=== PATIENT | female | born 1935 | race Caucasian/White ===

== ENCOUNTER → 2016-09-27 | Outpatient (REF) | payer MEDICARE ==
[~2016-09-27] MED LIST: *HOLTER -; /PANT40TA; AMBI10TA; AMBI5TAB PO; AMBIEN10 PO; AMO500 PO; ASPEC325 PO; ATARAX25 PO; BIAXIN500 PO; BONIVA PO; CELEBRE100 PO; CIPR500T3 PO; CIPRO250 PO; CIPRO500 PO; CLAR10CA3 PO; DARVOCET-N PO; DIFLUC150 PO; DRISDOL50 PO; EPIPENAD INJECTION; FLAG250T PO; FLEXERIL; FLEXERIL10 PO; IMITREX SC; IMITREX50 PO; LIDODERM; LIDODERM TOPICAL; LORTAB5 PO; MOME50SP; NASONEX NASAL; NIFEREX PO; OMNICEF300 PO; PHENERGA25 PO; PRED10TA2; PREDNISO10 PO; PREDNISON5 PO; PREVACID30 PO; SKELAXIN8 PO; TYLE325T5 PO; VALTREX100 PO; VICO5TAB; VICODIN PO; VITAMIN D50000 UNT; ZOFR4TAB3 PO; ZOLOFT50 PO; [UNRECOGNIZED DRUG - OTHER] NASAL
[2016-09-27 16:55] LABS: TRIPLE PHOSPHATE CRYSTALS SMALL
== END ==
LOC: M SFHCPLAZ 15:47
PROVIDERS: ATTEND Family Medicine
DX: R30.0 Dysuria (principal)

== ENCOUNTER → 2016-10-07 | Outpatient (CLI) | payer MEDICARE ==
--- NOTE | 2016-10-07 15:26 | REP ---
Right ankle series: Four views. History: Contusion. Findings: Four views of the right ankle demonstrate anterolateral soft-tissue swelling and some diffuse osteopenia. There is Achilles and plantar calcaneal spurring. No fracture or subluxation is seen. Ankle mortise is intact. Impression: No fracture noted. Signed by Gilberto Grubbs MD 10/07/2016 03:33 P
--- NOTE | 2016-10-07 15:27 | REP ---
Right foot series: Four views. History: Contusion. Findings: Four views of the right foot demonstrate Achilles and plantar calcaneal spurring and diffuse osteoporosis. No fracture or subluxation is seen. Impression: No fracture noted. Signed by Gilberto Grubbs MD 10/07/2016 03:33 P
== END ==
LOC: M WUC 14:20
PROVIDERS: ATTEND Physician Assistant
DX: S90.01XA Contusion of right ankle, initial encounter (principal); X58.XXXA Exposure to other specified factors, initial encounter; Y92.89 Other specified places as the place of occurrence of the external cause; Y93.89 Activity, other specified; Y99.8 Other external cause status

== ENCOUNTER → 2016-11-25 | Outpatient (REF) | payer MEDICARE ==
[2016-11-25 13:35] LABS: MEAN CORPUSCULAR HGB CONC 35.2 g/dl (32.0-36.5); MEAN CORPUSCULAR VOLUME 85.4 fl (80.0-96.0)
[2016-11-25 13:36] LABS: BASO % 0.3 % (0.0-1.0); EOS % 0.5 % (0.0-3.0); LYMPH # 0.3 K/mm3 (1.5-4.5); LYMPH % 10.6 % (24.0-44.0); MONO # 0.1 K/mm3 (0.0-0.8); NEUTROPHILS # 2.6 K/mm3 (1.8-7.7); NEUTROPHILS % 85.5 % (36.0-66.0); PLATELET COUNT, AUTOMATED 138 k/mm3 (150-450)
[2016-11-25 13:37] LABS: RETIC HEMOGLOBIN CONTENT CHr 30.5 PG (24-36)
[2016-11-25 13:38] LABS: RETICULOCYTE ABSOLUTE ADVIA212 86 x10(9)/L (17-77)
[2016-11-25 13:39] LABS: ALBUMIN 3.6 GM/DL (3.2-5.2); ALBUMIN/GLOBULIN RATIO 0.88 (1.00-1.93); ALKALINE PHOSPHATASE 100 U/L (45-117); ALT/SGPT 15 U/L (12-78); ANION GAP 5 MEQ/L (8-16); AST/SGOT 23 U/L (15-37); BILIRUBIN,TOTAL 0.9 MG/DL (0.2-1.0); BLOOD UREA NITROGEN 17 MG/DL (7-18); CALCIUM LEVEL 8.7 MG/DL (8.8-10.2); CARBON DIOXIDE LEVEL 32 MEQ/L (21-32); CHLORIDE LEVEL 103 MEQ/L (98-107); CREATININE FOR GFR 0.66 MG/DL (0.55-1.02); FERRITIN 184 NG/ML (8-252); GLOMERULAR FILTRATION RATE > 60.0 (>32); GLUCOSE, FASTING 96 MG/DL (83-110); POTASSIUM SERUM 4.1 MEQ/L (3.5-5.1); RETICULOCYTE % ADVIA2120 3.05 % (0.5-1.5); SODIUM LEVEL 140 MEQ/L (136-145); TOTAL IRON BINDING CAPACITY 255 UG/DL (250-450); TOTAL PROTEIN 7.7 GM/DL (6.4-8.2)
== END ==
LOC: M SFHCPLAZ 12:01
PROVIDERS: ATTEND Family Medicine
DX: D61.818 Other pancytopenia (principal); E55.9 Vitamin D deficiency, unspecified; I50.30 Unspecified diastolic (congestive) heart failure
CPT/HCPCS: 36415; 80053; 82306; 82728; 83550; 83970; 85025; 85046; 86140; G0463

== ENCOUNTER → 2017-03-22 | Outpatient (REF) | payer MEDICARE ==
[~2017-03-22] MED LIST changes: +COMBAER6 INH
== END ==
LOC: M LAB REF 09:37
PROVIDERS: ATTEND Physician Assistant
DX: N39.0 Urinary tract infection, site not specified (principal)

== ENCOUNTER → 2017-03-31 | Outpatient (REF) | payer MEDICARE ==
[2017-03-31 12:06] LABS: BASO % 0.8 % (0.0-1.0); EOS % 0.3 % (0.0-3.0); LARGE UNSTAINED CELL # 0.1 K/mm3 (0.0-0.4); LARGE UNSTAINED CELL % 2.7 % (0.0-4.0); LYMPH # 0.8 K/mm3 (1.5-4.5); LYMPH % 36.1 % (24.0-44.0); MEAN CORPUSCULAR HEMOGLOBIN 30.6 pg (27.0-33.0); MEAN CORPUSCULAR HGB CONC 30.4 g/dl (32.0-36.5); MEAN CORPUSCULAR VOLUME 100.5 fl (80.0-96.0); MONO # 0.3 K/mm3 (0.0-0.8); MONO % 13.4 % (0.0-5.0); NEUTROPHILS % 46.7 % (36.0-66.0); PLATELET COUNT, AUTOMATED 128 k/mm3 (150-450); RED CELL DISTRIBUTION WIDTH 14.1 % (11.5-14.5); WHITE BLOOD COUNT 2.2 K/mm3 (4.0-10.0)
[2017-03-31 12:24] LABS: ALBUMIN 3.2 GM/DL (3.2-5.2); ALBUMIN/GLOBULIN RATIO 0.74 (1.00-1.93); ALKALINE PHOSPHATASE 93 U/L (45-117); ALT/SGPT 13 U/L (12-78); ANION GAP 5 MEQ/L (8-16); AST/SGOT 19 U/L (15-37); BILIRUBIN,TOTAL 0.8 MG/DL (0.2-1.0); BLOOD UREA NITROGEN 17 MG/DL (7-18); CALCIUM LEVEL 8.7 MG/DL (8.8-10.2); CARBON DIOXIDE LEVEL 33 MEQ/L (21-32); CHLORIDE LEVEL 104 MEQ/L (98-107); CREATININE FOR GFR 0.59 MG/DL (0.55-1.02); FREE T4 0.93 NG/DL (0.76-1.46); GLOMERULAR FILTRATION RATE > 60.0 (>32); GLUCOSE, FASTING 98 MG/DL (83-110); POTASSIUM SERUM 4.2 MEQ/L (3.5-5.1); SODIUM LEVEL 142 MEQ/L (136-145); TOTAL PROTEIN 7.5 GM/DL (6.4-8.2)
== END ==
LOC: M LABDRAW1 10:18
PROVIDERS: ATTEND Family Medicine
DX: D64.9 Anemia, unspecified (principal); E55.9 Vitamin D deficiency, unspecified; R63.4 Abnormal weight loss

== ENCOUNTER 2017-04-03 10:47 | Outpatient (CLI) | payer MEDICARE ==
[~2017-04-03] VITALS: Ht 154.9 cm; Wt 40.9 kg
[2017-04-03] VITALS (9 sets, daily range): BP systolic 93–145; BP diastolic 50–68
[~2017-04-03 10:47] MED LIST changes: -COMBAER6 INH
[2017-04-03] MEDS ORDERED: COMBAER6 INH (11:12)
== END 2017-04-03 19:00 ==
LOC: M OPCLIPED 10:47 → M PED 10:50 → M OPCLIPED 19:00
PROVIDERS: ATTEND Family Medicine
DX: D50.9 Iron deficiency anemia, unspecified (principal); Z88.8 Allergy status to other drugs, medicaments and biological substances; Z88.1 Allergy status to other antibiotic agents; Z91.030 Bee allergy status; Z79.899 Other long term (current) drug therapy
CPT/HCPCS: 36430; 86850; 86900; 86901; 86920; P9016

== ENCOUNTER → 2017-04-05 | Outpatient (CLI) | payer MEDICARE ==
[~2017-04-05] MED LIST changes: +COMBAER6 INH; +GASTROGRAFIN SOLUTION 30ML (Q9963) As Ordered ONE; +ISOVUE-370 76% 100ML VIAL (Q9967) As Ordered ONE
--- NOTE | 2017-04-05 12:40 | REP ---
CT NECK WITH CONTRAST: HISTORY: Weight loss. CONTRAST: Isovue 370, 75 mL. The naso-, obed-, and hypopharynx, larynx and subglottic trachea are normal in appearance. Increased density is present in the left vallecula. This most likely represents secretions. The salivary glands are normal in size and density. A 5 mm hypodensity is present in the right thyroid lobe. This most likely represents a cyst. The left thyroid lobe is normal in appearance. Small lymph nodes less than 1 cm in size are present in the internal jugular chains, posterior triangles, submandibular and submental areas. Degenerative change is present in the cervical spine. Scaring is present in the lung apices. The visualized sinuses are clear. IMPRESSION: There is no neck mass or adenopathy. Signed by Yordan Kohli MD 04/05/2017 01:25 P
--- NOTE | 2017-04-05 13:32 | REP ---
CT CHEST WITH IV CONTRAST: TECHNIQUE: Axial contrast enhanced images from the thoracic inlet to the upper abdomen using 100 mL Isovue 370 intravenous contrast material with multiplanar reformations. Advanced interstitial fibrotic changes are again diffusely bilaterally with honeycombing primarily in a subpleural location and more so inferiorly. Confluent parenchymal opacity in the right apex has mildly increased as has mildly confluent opacity in the right lower lobe laterally. Otherwise, the findings are stable. Multiple enlarged mediastinal and hilar lymph nodes are unchanged since the prior exam of 11/23/2015. There is mild cardiomegaly. There is no pleural or pericardial effusion. Mild atherosclerotic calcifications are seen of the thoracic aorta without aneurysm. There are mild degenerative changes of the spine. IMPRESSION: No change in mediastinal and hilar adenopathy compared to the prior study of 11/23/2015. Advanced pulmonary fibrosis for the most part appears stable but there is increased confluent consolidative opacity in the right apex and lateral right lower lobe. Signed by Wallace Erwin MD 04/05/2017 05:37 P
--- NOTE | 2017-04-05 13:50 | REP ---
CT ABDOMEN AND PELVIS WITH AND WITHOUT CONTRAST: TECHNIQUE: Axial noncontrast images through the abdomen followed by contrast-enhanced images through the abdomen and pelvis using 100 mL Isovue 370 intravenous contrast material, with coronal and sagittal reformations. The liver, spleen, and left adrenal are unremarkable. The right adrenal demonstrates a stable nodule measuring 1.3 cm in diameter. The pancreas is unremarkable in appearance. There are bilateral renal cysts again seen essentially unchanged. There is no hydronephrosis. No renal stones are seen. There are moderate atherosclerotic calcifications of the abdominal aorta without aneurysm. There is no adenopathy, free air or free fluid. No bowel wall thickening is seen. No pelvic mass is seen. The patient has had a hysterectomy. There are degenerative changes of the spine. Small gallstones are seen in the gallbladder. IMPRESSION: Stable right adrenal nodule and bilateral renal cysts. No new mass or adenopathy. Gallstones. Signed by Wallace Erwin MD 04/05/2017 05:37 P
== END ==
LOC: M RAD 09:31
PROVIDERS: ATTEND Family Medicine
DX: R63.4 Abnormal weight loss (principal); N28.1 Cyst of kidney, acquired; E27.9 Disorder of adrenal gland, unspecified; J84.112 Idiopathic pulmonary fibrosis
CPT/HCPCS: 70491; 71260; 74178; Q9963; Q9967

== ENCOUNTER → 2017-05-05 | Outpatient (REF) | payer MEDICARE ==
[~2017-05-05] MED LIST changes: -GASTROGRAFIN SOLUTION 30ML (Q9963) As Ordered ONE; -ISOVUE-370 76% 100ML VIAL (Q9967) As Ordered ONE
[2017-05-05 16:30] LABS: BASO % 0.4 % (0.0-1.0); EOS % 0.5 % (0.0-3.0); LARGE UNSTAINED CELL # 0.1 K/mm3 (0.0-0.4); LYMPH # 0.8 K/mm3 (1.5-4.5); LYMPH % 29.3 % (24.0-44.0); MEAN CORPUSCULAR HEMOGLOBIN 30.5 pg (27.0-33.0); MEAN CORPUSCULAR VOLUME 98.6 fl (80.0-96.0); MONO # 0.2 K/mm3 (0.0-0.8); MONO % 9.8 % (0.0-5.0); NEUTROPHILS # 1.3 K/mm3 (1.8-7.7); PLATELET COUNT, AUTOMATED 109 k/mm3 (150-450); RED CELL DISTRIBUTION WIDTH 15.2 % (11.5-14.5); RETIC HEMOGLOBIN CONTENT CHr 32.3 PG (24-36); RETICULOCYTE ABSOLUTE ADVIA212 125 x10(9)/L (17-77); WHITE BLOOD COUNT 2.3 K/mm3 (4.0-10.0)
[2017-05-05 16:48] LABS: TOTAL PROTEIN 7.8 GM/DL (6.4-8.2)
[2017-05-05 16:54] LABS: VITAMIN B12 LEVEL 948 PG/ML (247-911)
[2017-05-08 14:56] LABS: ALBUMIN 3.77 GM/DL (3.29-5.55); ALBUMIN % 48.3 % (55.8-66.1); GAMMA GLOBULIN % 23.5 % (11.1-18.8)
[2017-05-09 12:04] LABS: PRETREATED FOLATE FOR RBCFOL 6.9 NG/ML
== END ==
LOC: M SFHCPLAZ 14:52
PROVIDERS: ATTEND Family Medicine
DX: D64.9 Anemia, unspecified (principal)

== ENCOUNTER 2018-03-31 15:26 | Inpatient (IN) | payer MEDICARE ==
[2018-03-31] MEDS: ONDANSETRON 4MG/2ML VIAL (J2405) IV (16:19)
[2018-03-31] MEDS: MORPHINE 2 MG/ML 1ML SYRINGE (J2270) IV ×2 (16:20→18:19)
[2018-03-31 16:23] LABS: IMMATURE GRANULOCYTE % 1.1 % (0-3.0); LYMPH # 0.4 10^3/uL (1.5-4.5); LYMPH % 14.1 % (24.0-44.0); MEAN CORPUSCULAR HEMOGLOBIN 30.5 pg (27.0-33.0); MEAN CORPUSCULAR HGB CONC 27.9 g/dl (32.0-36.5); MEAN CORPUSCULAR VOLUME 109.1 fl (80.0-96.0); MONO # 0.2 10^3/uL (0.0-0.8); MONO % 6.5 % (0.0-5.0); NEUTROPHILS # 2.1 10^3/uL (1.8-7.7); NEUTROPHILS % 78.3 % (36.0-66.0); RED CELL DISTRIBUTION WIDTH 14.6 % (11.5-14.5); WHITE BLOOD COUNT 2.6 10^3/uL (4.0-10.0)
[2018-03-31 16:26] LABS: HEMOGLOBIN 6.7 g/dl (12.0-15.5); PLATELET COUNT, AUTOMATED 87 10^3/uL (150-450)
[2018-03-31 16:33] LABS: BEDSIDE GLUCOSE 92 MG/DL (83-110)
[2018-03-31 16:35] LABS: IMMATURE PLATELET FRACTION % 2.2 % (0.0-9.6)
[2018-03-31 16:39] LABS: LACTIC ACID SEPSIS PROTOCOL 0.8 MMOL/L (0.4-2.0)
[2018-03-31 16:42] LABS: INR 1.07
[2018-03-31 16:43] LABS: PARTIAL THROMBOPLASTIN TIME 34.1 SECONDS (25.4-37.6)
[2018-03-31 16:44] LABS: ALBUMIN/GLOBULIN RATIO 0.61 (1.00-1.93); ALKALINE PHOSPHATASE 89 U/L (45-117); ALT/SGPT 14 U/L (12-78); AMYLASE 176 U/L (25-115); ANION GAP 2 MEQ/L (8-16); AST/SGOT 27 U/L (7-37); BILIRUBIN,DIRECT 0.2 MG/DL (0.0-0.2); BILIRUBIN,TOTAL 0.8 MG/DL (0.2-1.0); BLOOD UREA NITROGEN 24 MG/DL (7-18); CALCIUM LEVEL 8.6 MG/DL (8.8-10.2); CARBON DIOXIDE LEVEL 39 MEQ/L (21-32); CHLORIDE LEVEL 101 MEQ/L (98-107); CK-MB VALUE MASS < 1.0 NG/ML (<3.6); CPK CREATINE PHOSPHOKINASE 56 U/L (26-192); CREATININE FOR GFR 0.56 MG/DL (0.55-1.30); GLOMERULAR FILTRATION RATE > 60.0 (>32); GLUCOSE, FASTING 95 MG/DL (70-100); LIPASE 402 U/L (73-393); MB/CK RELATIVE INDEX 1.78 (< OR =4); POTASSIUM SERUM 4.3 MEQ/L (3.5-5.1); SODIUM LEVEL 142 MEQ/L (136-145); TOTAL PROTEIN 7.9 GM/DL (6.4-8.2); TROPONIN I < 0.02 NG/ML (< 0.10)
[2018-03-31] MEDS ORDERED: BISACODYL 10 MG SUPP PR (18:00)
[2018-03-31 18:18] LABS: IMMEDIATE SPIN CROSSMATCH 1 4
[2018-03-31] MEDS: IPRATROPIUM 0.5MG/ALBUTEROL 2.5MG INH SOL UD 3ML (DUONEB)(J7620) NEB (20:00)
[2018-03-31] MEDS: SENOKOT S TAB PO (22:28)
[2018-03-31] MEDS: NS 1,000 ML IV (23:09)
[2018-03-31] MEDS: MORPHINE 4 MG/ML 1ML VIAL/SYRINGE (J2270) IV (23:09)
[2018-04-01 00:20] LABS: HEMATOCRIT 29.5 % (36.0-47.0); MEAN CORPUSCULAR HEMOGLOBIN 30.4 pg (27.0-33.0); MEAN CORPUSCULAR HGB CONC 29.5 g/dl (32.0-36.5); MEAN CORPUSCULAR VOLUME 103.1 fl (80.0-96.0); RED BLOOD COUNT 2.86 10^6/uL (4.00-5.40); RED CELL DISTRIBUTION WIDTH 17.1 % (11.5-14.5); WHITE BLOOD COUNT 3.6 10^3/uL (4.0-10.0)
[2018-04-01 00:22] LABS: PLATELET COUNT, AUTOMATED 79 10^3/uL (150-450)
[2018-04-01 00:23] LABS: HEMOGLOBIN 8.7 g/dl (12.0-15.5)
[2018-04-01 06:48] LABS: BASO % 0.4 % (0.0-1.0); HEMATOCRIT 27.6 % (36.0-47.0); HEMOGLOBIN 8.3 g/dl (12.0-15.5); IMMATURE GRANULOCYTE % 0.4 % (0-3.0); LYMPH # 0.5 10^3/uL (1.5-4.5); LYMPH % 22.2 % (24.0-44.0); MEAN CORPUSCULAR HEMOGLOBIN 30.1 pg (27.0-33.0); MEAN CORPUSCULAR HGB CONC 30.1 g/dl (32.0-36.5); MONO # 0.3 10^3/uL (0.0-0.8); MONO % 13.8 % (0.0-5.0); NEUTROPHILS # 1.5 10^3/uL (1.8-7.7); NEUTROPHILS % 63.2 % (36.0-66.0); RED BLOOD COUNT 2.76 10^6/uL (4.00-5.40); RED CELL DISTRIBUTION WIDTH 17.4 % (11.5-14.5); WHITE BLOOD COUNT 2.4 10^3/uL (4.0-10.0)
[2018-04-01 06:49] LABS: PLATELET COUNT, AUTOMATED 64 10^3/uL (150-450)
[2018-04-01 06:58] LABS: ALBUMIN 2.7 GM/DL (3.2-5.2); ALBUMIN/GLOBULIN RATIO 0.59 (1.00-1.93); ALKALINE PHOSPHATASE 74 U/L (45-117); ALT/SGPT 13 U/L (12-78); ANION GAP 1 MEQ/L (8-16); AST/SGOT 24 U/L (7-37); BILIRUBIN,TOTAL 0.9 MG/DL (0.2-1.0); BLOOD UREA NITROGEN 21 MG/DL (7-18); CALCIUM LEVEL 8.5 MG/DL (8.8-10.2); CARBON DIOXIDE LEVEL 38 MEQ/L (21-32); CHLORIDE LEVEL 103 MEQ/L (98-107); CREATININE FOR GFR 0.48 MG/DL (0.55-1.30); GLOMERULAR FILTRATION RATE > 60.0 (>32); GLUCOSE, FASTING 78 MG/DL (70-100); POTASSIUM SERUM 4.3 MEQ/L (3.5-5.1); SODIUM LEVEL 142 MEQ/L (136-145); TOTAL PROTEIN 7.3 GM/DL (6.4-8.2)
[2018-04-01] MEDS: ACETAMINOPHEN TAB 650MG DOSE (2X325MG) PO (07:46)
[2018-04-01] MEDS: PANTOPRAZOLE 40MG TAB (PROTONIX) PO (07:47)
[2018-04-01] MEDS: SENOKOT S TAB PO ×2 (07:47→20:12)
[2018-04-01] MEDS: MORPHINE 4 MG/ML 1ML VIAL/SYRINGE (J2270) IV (07:47)
[2018-04-01] MEDS: NS 1,000 ML IV ×2 (07:48→19:55)
[2018-04-01] MEDS: IPRATROPIUM 0.5MG/ALBUTEROL 2.5MG INH SOL UD 3ML (DUONEB)(J7620) NEB ×4 (07:52→20:45)
[2018-04-01] MEDS: ceFAZolin 2 GM/D5W 50 ML IV BAG (J0690 PER 500MG) As Ordered (14:41)
[2018-04-01] MEDS ORDERED: LIDOCAINE 2% INJ 100 MG/5 ML SDV (FOR ANES.) As Ordered (14:56)
[2018-04-01] MEDS ORDERED: MIDAZOLAM INJ 2 MG/2 ML VIAL (J2250) As Ordered (14:56)
[2018-04-01] MEDS ORDERED: PHENYLEPHRINE INJ 10MG/ML VIAL (J2370) As Ordered (14:56)
[2018-04-01] MEDS ORDERED: ROCURONIUM BROMIDE 50 MG/5 ML VIAL As Ordered (14:56)
[2018-04-01] MEDS ORDERED: fentaNYL 100 MCG/2 ML INJECTION (J3010) As Ordered (14:56)
[2018-04-01] MEDS ORDERED: ONDANSETRON 4MG/2ML VIAL (J2405) As Ordered (14:56)
[2018-04-01] MEDS ORDERED: SUCCINYLCHOLINE 100 MG/5 ML SYRINGE (J0330) As Ordered (14:56)
[2018-04-01 15:21] LABS: TYPE AND SCREEN 1 1
[2018-04-01] MEDS: BUPIVACAINE HCL 0.5% 30 ML VIAL As Ordered (15:24)
[2018-04-01] MEDS ORDERED: ETOMIDATE INJ 20MG/10ML VIAL As Ordered (15:58)
[2018-04-01] MEDS ORDERED: fentaNYL 100 MCG/2 ML INJECTION (J3010) IV (16:30)
[2018-04-01] MEDS ORDERED: ONDANSETRON 4MG/2ML VIAL (J2405) IV (16:30)
[2018-04-01] MEDS ORDERED: ACETAMINOPHEN TAB 650MG DOSE (2X325MG) PO (16:45)
[2018-04-01] MEDS: LR 1,000 ML IV (19:05)
[2018-04-01 19:26] LABS: HEMATOCRIT 26.6 % (36.0-47.0); HEMOGLOBIN 8.2 g/dl (12.0-15.5); MEAN CORPUSCULAR HEMOGLOBIN 30.7 pg (27.0-33.0); MEAN CORPUSCULAR HGB CONC 30.8 g/dl (32.0-36.5); MEAN CORPUSCULAR VOLUME 99.6 fl (80.0-96.0); RED BLOOD COUNT 2.67 10^6/uL (4.00-5.40); RED CELL DISTRIBUTION WIDTH 17.7 % (11.5-14.5)
[2018-04-01 19:27] LABS: PLATELET COUNT, AUTOMATED 61 10^3/uL (150-450)
[2018-04-01 19:29] LABS: IMMATURE PLATELET FRACTION % 1.8 % (0.0-9.6)
[2018-04-01] MEDS: ACETAMINOPHEN 500 MG TAB PO (20:12)
[2018-04-01] MEDS: ceFAZolin SOD 1 GM in D5W MINI-BAG PLUS 50 ML IV (20:12)
[2018-04-01] MEDS: NS 500 ML IV (22:30)
[2018-04-02] MEDS: ceFAZolin SOD 1 GM in D5W MINI-BAG PLUS 50 ML IV (03:24)
[2018-04-02] MEDS: ACETAMINOPHEN 500 MG TAB PO ×3 (03:25→21:16)
[2018-04-02] MEDS: NS 1,000 ML IV (03:32)
[2018-04-02 03:34] LABS: HEMATOCRIT 27.3 % (36.0-47.0); HEMOGLOBIN 8.7 g/dl (12.0-15.5); MEAN CORPUSCULAR HEMOGLOBIN 30.6 pg (27.0-33.0); MEAN CORPUSCULAR HGB CONC 31.9 g/dl (32.0-36.5); MEAN CORPUSCULAR VOLUME 96.1 fl (80.0-96.0); RED BLOOD COUNT 2.84 10^6/uL (4.00-5.40); RED CELL DISTRIBUTION WIDTH 17.4 % (11.5-14.5); WHITE BLOOD COUNT 3.4 10^3/uL (4.0-10.0)
[2018-04-02 03:41] LABS: PLATELET COUNT, AUTOMATED 69 10^3/uL (150-450)
[2018-04-02 03:58] LABS: ANION GAP 3 MEQ/L (8-16); BLOOD UREA NITROGEN 17 MG/DL (7-18); CALCIUM LEVEL 7.4 MG/DL (8.8-10.2); CARBON DIOXIDE LEVEL 34 MEQ/L (21-32); CHLORIDE LEVEL 106 MEQ/L (98-107); CREATININE FOR GFR 0.44 MG/DL (0.55-1.30); GLOMERULAR FILTRATION RATE > 60.0 (>32); GLUCOSE, FASTING 83 MG/DL (70-100); MAGNESIUM LEVEL 1.5 MG/DL (1.8-2.4); POTASSIUM SERUM 3.9 MEQ/L (3.5-5.1); SODIUM LEVEL 143 MEQ/L (136-145); TOTAL PROTEIN 5.7 GM/DL (6.4-8.2)
[2018-04-02 06:34] LABS: HEMATOCRIT 25.6 % (36.0-47.0); HEMOGLOBIN 8.1 g/dl (12.0-15.5); MEAN CORPUSCULAR HEMOGLOBIN 30.5 pg (27.0-33.0); MEAN CORPUSCULAR HGB CONC 31.6 g/dl (32.0-36.5); MEAN CORPUSCULAR VOLUME 96.2 fl (80.0-96.0); RED BLOOD COUNT 2.66 10^6/uL (4.00-5.40); RED CELL DISTRIBUTION WIDTH 17.6 % (11.5-14.5); WHITE BLOOD COUNT 2.9 10^3/uL (4.0-10.0)
[2018-04-02 06:40] LABS: PLATELET COUNT, AUTOMATED 68 10^3/uL (150-450)
[2018-04-02] MEDS: IPRATROPIUM 0.5MG/ALBUTEROL 2.5MG INH SOL UD 3ML (DUONEB)(J7620) NEB ×4 (07:06→20:00)
[2018-04-02] MEDS: PANTOPRAZOLE 40MG TAB (PROTONIX) PO (08:20)
[2018-04-02] MEDS: SENOKOT S TAB PO ×2 (08:20→21:00)
[2018-04-02] MEDS: MIRALAX *UNIT DOSE* 17GM PACKET PO (08:22)
[2018-04-03 11:34] LABS: ALBUMIN 2.75 GM/DL (3.29-5.55); ALBUMIN % 48.3 % (55.8-66.1); ALPHA-1-GLOBULIN % 5.6 % (2.9-4.9); ALPHA-1-GLOBULINS 0.32 GM/DL (0.17-0.41); ALPHA-2-GLOBULINS 0.54 GM/DL (0.42-0.99); ALPHA-2-GLOBULINS % 9.5 % (7.1-11.8); BETA-1-GLOBULINS 0.32 GM/DL (0.28-0.60); BETA-1-GLOBULINS % 5.7 % (4.7-7.2); BETA-2-GLOBULINS 0.48 GM/DL (0.19-0.55); BETA-2-GLOBULINS % 8.5 % (3.2-6.5); GAMMA GLOBULIN % 22.4 % (11.1-18.8); GAMMA GLOBULINS 1.28 GM/DL (0.65-1.58)
[2018-04-04 00:08] LABS: FREE KAPPA LIGHT CHAINS SERUM 70.4 mg/L (3.3-19.4); FREE LAMBDA LIGHT CHAINS SERUM 54.6 mg/L (5.7-26.3); KAPPA/LAMBDA RATIO SERUM 1.29 (0.26-1.65)
== END 2018-04-02 22:40 | DRG 481 ==
LOC: M PM&R 04-02 22:42 → M MS5PR 04-02 22:42 → M PM&R 04-02 23:24 → M ED 15:26 → M ED INP 17:52 → M MS5PR 04-02 23:24
PROC: 0QS706Z Reposition Left Upper Femur with Intramedullary Internal Fixation Device, Open Approach (ICD-10-PCS; principal; 2018-04-01 08:00)
PROC: 30233N1 Transfusion of Nonautologous Red Blood Cells into Peripheral Vein, Percutaneous Approach (ICD-10-PCS; 2018-04-01 14:27)
PROC: 30233R1 Transfusion of Nonautologous Platelets into Peripheral Vein, Percutaneous Approach (ICD-10-PCS; 2018-04-01 14:27)
DX: S72.145A Nondisplaced intertrochanteric fracture of left femur, initial encounter for closed fracture (principal); D61.818 Other pancytopenia; E46 Unspecified protein-calorie malnutrition; Z68.1 Body mass index [BMI] 19.9 or less, adult; D46.9 Myelodysplastic syndrome, unspecified; J84.10 Pulmonary fibrosis, unspecified; I70.0 Atherosclerosis of aorta; D50.9 Iron deficiency anemia, unspecified; K59.09 Other constipation; G43.909 Migraine, unspecified, not intractable, without status migrainosus; Z87.891 Personal history of nicotine dependence; Z90.710 Acquired absence of both cervix and uterus; Z90.722 Acquired absence of ovaries, bilateral; Z90.49 Acquired absence of other specified parts of digestive tract; W01.0XXA Fall on same level from slipping, tripping and stumbling without subsequent striking against object, initial encounter; Z98.49 Cataract extraction status, unspecified eye; Z99.81 Dependence on supplemental oxygen; Y92.009 Unspecified place in unspecified non-institutional (private) residence as the place of occurrence of the external cause; Y93.01 Activity, walking, marching and hiking; Z79.51 Long term (current) use of inhaled steroids; Z79.899 Other long term (current) drug therapy

== ENCOUNTER 2018-04-02 22:40 | Inpatient (IN) | payer MEDICARE ==
[2018-04-02] MEDS: SENOKOT S TAB PO (22:30)
[~2018-04-02 22:40] MED LIST changes: -*HOLTER -; -/PANT40TA; -AMBI10TA; -AMBI5TAB PO; -AMBIEN10 PO; -AMO500 PO; -ASPEC325 PO; -ATARAX25 PO; -BIAXIN500 PO; +BISACODYL 10 MG SUPP PR; +BISACODYL 5 MG TAB PO; -BONIVA PO; -CELEBRE100 PO; -CIPR500T3 PO; -CIPRO250 PO; -CIPRO500 PO; -CLAR10CA3 PO; -COMBAER6 INH; -DARVOCET-N PO; -DIFLUC150 PO; -DRISDOL50 PO; -EPIPENAD INJECTION; -FLAG250T PO; +FLEET ENEMA PR; -FLEXERIL; -FLEXERIL10 PO; -IMITREX SC; -IMITREX50 PO; +IPRATROPIUM 0.5MG/ALBUTEROL 2.5MG INH SOL UD 3ML (DUONEB)(J7620) INH; -LIDODERM; -LIDODERM TOPICAL; -LORTAB5 PO; +MOM 30ML SUSPENSION UDC PO; -MOME50SP; -NASONEX NASAL; -NIFEREX PO; -OMNICEF300 PO; +ONDANSETRON 4 MG TAB (S0181) PO; +PANTOPRAZOLE 20 MG TAB PO; -PHENERGA25 PO; -PRED10TA2; -PREDNISO10 PO; -PREDNISON5 PO; -PREVACID30 PO; +SIMETHICONE 80 MG CHEW TAB PO; -SKELAXIN8 PO; -TYLE325T5 PO; -VALTREX100 PO; -VICO5TAB; -VICODIN PO; -VITAMIN D50000 UNT; -ZOFR4TAB3 PO; -ZOLOFT50 PO; -[UNRECOGNIZED DRUG - OTHER] NASAL
[2018-04-03] MEDS: IBUPROFEN 400 MG TAB PO (05:50)
[2018-04-03 07:15] LABS: HEMATOCRIT 25.2 % (36.0-47.0); HEMOGLOBIN 7.8 g/dl (12.0-15.5); IMMATURE GRANULOCYTE % 0.4 % (0-3.0); LYMPH # 0.4 10^3/uL (1.5-4.5); LYMPH % 17.6 % (24.0-44.0); MEAN CORPUSCULAR HEMOGLOBIN 30.6 pg (27.0-33.0); MEAN CORPUSCULAR VOLUME 98.8 fl (80.0-96.0); MONO # 0.4 10^3/uL (0.0-0.8); MONO % 15.6 % (0.0-5.0); NEUTROPHILS # 1.7 10^3/uL (1.8-7.7); NEUTROPHILS % 66.4 % (36.0-66.0); RED BLOOD COUNT 2.55 10^6/uL (4.00-5.40); RED CELL DISTRIBUTION WIDTH 17.2 % (11.5-14.5); WHITE BLOOD COUNT 2.5 10^3/uL (4.0-10.0)
[2018-04-03 07:16] LABS: PLATELET COUNT, AUTOMATED 63 10^3/uL (150-450)
[2018-04-03 07:17] LABS: IMMATURE PLATELET FRACTION % 2.2 % (0.0-9.6)
[2018-04-03 07:26] LABS: ALBUMIN 2.2 GM/DL (3.2-5.2); ALBUMIN/GLOBULIN RATIO 0.59 (1.00-1.93); ALKALINE PHOSPHATASE 58 U/L (45-117); ALT/SGPT 10 U/L (12-78); ANION GAP 3 MEQ/L (8-16); AST/SGOT 24 U/L (7-37); BILIRUBIN,TOTAL 0.7 MG/DL (0.2-1.0); BLOOD UREA NITROGEN 13 MG/DL (7-18); CALCIUM LEVEL 8.2 MG/DL (8.8-10.2); CARBON DIOXIDE LEVEL 35 MEQ/L (21-32); CHLORIDE LEVEL 105 MEQ/L (98-107); CREATININE FOR GFR 0.52 MG/DL (0.55-1.30); GLOMERULAR FILTRATION RATE > 60.0 (>32); GLUCOSE, FASTING 80 MG/DL (70-100); POTASSIUM SERUM 3.8 MEQ/L (3.5-5.1); SODIUM LEVEL 143 MEQ/L (136-145); TOTAL PROTEIN 5.9 GM/DL (6.4-8.2)
[2018-04-03] MEDS: MIRALAX *UNIT DOSE* 17GM PACKET PO (08:50)
[2018-04-03] MEDS: PANTOPRAZOLE 40MG TAB (PROTONIX) PO (08:50)
[2018-04-03] MEDS: MULTIVITAMINS/MINERALS THERAP 1 TAB PO (08:50)
[2018-04-03] MEDS: ACETAMINOPHEN 500 MG TAB PO ×2 (11:26→17:14)
[2018-04-03 16:56] LABS: IMMEDIATE SPIN CROSSMATCH 1
[2018-04-03] MEDS: NS 250 ML IV (17:05)
[2018-04-03 19:15] LABS: IMMEDIATE SPIN CROSSMATCH 1 1
[2018-04-03] MEDS: SENOKOT S TAB PO (21:00)
[2018-04-03] MEDS: PANTOPRAZOLE 20 MG TAB PO (21:00)
[2018-04-04] MEDS: ACETAMINOPHEN 500 MG TAB PO ×3 (05:52→17:54)
[2018-04-04 07:34] LABS: EOS % 0.3 % (0.0-3.0); HEMATOCRIT 24.2 % (36.0-47.0); HEMOGLOBIN 7.8 g/dl (12.0-15.5); IMMATURE GRANULOCYTE % 0.7 % (0-3.0); LYMPH # 0.5 10^3/uL (1.5-4.5); LYMPH % 18.4 % (24.0-44.0); MEAN CORPUSCULAR HEMOGLOBIN 31.1 pg (27.0-33.0); MEAN CORPUSCULAR HGB CONC 32.2 g/dl (32.0-36.5); MEAN CORPUSCULAR VOLUME 96.4 fl (80.0-96.0); MONO # 0.3 10^3/uL (0.0-0.8); MONO % 10.5 % (0.0-5.0); NEUTROPHILS # 2.1 10^3/uL (1.8-7.7); NEUTROPHILS % 70.1 % (36.0-66.0); RED BLOOD COUNT 2.51 10^6/uL (4.00-5.40); WHITE BLOOD COUNT 2.9 10^3/uL (4.0-10.0)
[2018-04-04 07:35] LABS: PLATELET COUNT, AUTOMATED 73 10^3/uL (150-450)
[2018-04-04 07:36] LABS: IMMATURE PLATELET FRACTION % 2.1 % (0.0-9.6)
[2018-04-04 07:40] LABS: ANION GAP 3 MEQ/L (8-16); BLOOD UREA NITROGEN 14 MG/DL (7-18); CALCIUM LEVEL 8.3 MG/DL (8.8-10.2); CARBON DIOXIDE LEVEL 34 MEQ/L (21-32); CHLORIDE LEVEL 107 MEQ/L (98-107); CREATININE FOR GFR 0.49 MG/DL (0.55-1.30); GLOMERULAR FILTRATION RATE > 60.0 (>32); GLUCOSE, FASTING 84 MG/DL (70-100); POTASSIUM SERUM 3.5 MEQ/L (3.5-5.1); SODIUM LEVEL 144 MEQ/L (136-145)
[2018-04-04] MEDS: MIRALAX *UNIT DOSE* 17GM PACKET PO (09:57)
[2018-04-04] MEDS: PANTOPRAZOLE 40MG TAB (PROTONIX) PO (09:57)
[2018-04-04] MEDS: MULTIVITAMINS/MINERALS THERAP 1 TAB PO (09:57)
[2018-04-04 10:11] LABS: HEMATOCRIT 29.9 % (36.0-47.0); HEMOGLOBIN 9.3 g/dl (12.0-15.5)
[2018-04-04 10:40] LABS: FREE T4 0.99 NG/DL (0.76-1.46)
[2018-04-04 13:24] LABS: VITAMIN B12 LEVEL 843 PG/ML (247-911)
[2018-04-04] MEDS ORDERED: HALOPERIDOL 5 MG/ML VIAL (J1630) IM (15:45)
[2018-04-04] MEDS: PANTOPRAZOLE 20 MG TAB PO (20:54)
[2018-04-04] MEDS: SENOKOT S TAB PO (20:54)
[2018-04-04] MEDS: IBUPROFEN 400 MG TAB PO (20:55)
[2018-04-05] MEDS: ACETAMINOPHEN 500 MG TAB PO ×3 (06:30→16:38)
[2018-04-05] MEDS: MIRALAX *UNIT DOSE* 17GM PACKET PO (08:23)
[2018-04-05] MEDS: MULTIVITAMINS/MINERALS THERAP 1 TAB PO (08:23)
[2018-04-05] MEDS: PANTOPRAZOLE 40MG TAB (PROTONIX) PO (08:23)
[2018-04-05] MEDS ORDERED: EXCEDRIN MIGRAINE TABLET PO (12:15)
[2018-04-05 12:55] LABS: IMMUNOTYPING SERUM LAMBDA ABNORMAL (NORMAL)
[2018-04-05 18:38] LABS: URINE TOTAL PROTEIN 120.3 MG/DL (0-12)
[2018-04-05] MEDS: diphenhydrAMINE 25 MG CAP PO (20:06)
[2018-04-05] MEDS: PANTOPRAZOLE 20 MG TAB PO (20:06)
[2018-04-05] MEDS: IBUPROFEN 400 MG TAB PO (20:07)
[2018-04-05] MEDS: SENOKOT S TAB PO (20:53)
[2018-04-05] MEDS ORDERED: diphenhydrAMINE 25 MG CAP PO (21:00)
[2018-04-06] MEDS: ACETAMINOPHEN 500 MG TAB PO ×3 (05:18→18:04)
[2018-04-06] MEDS: MIRALAX *UNIT DOSE* 17GM PACKET PO (09:00)
[2018-04-06] MEDS: MULTIVITAMINS/MINERALS THERAP 1 TAB PO (09:38)
[2018-04-06] MEDS: PANTOPRAZOLE 40MG TAB (PROTONIX) PO (09:38)
[2018-04-06] MEDS: IBUPROFEN 400 MG TAB PO ×3 (09:38→22:23)
[2018-04-06 11:00] LABS: HEMOGLOBIN 8.5 g/dl (12.0-15.5); MEAN CORPUSCULAR HEMOGLOBIN 30.9 pg (27.0-33.0); MEAN CORPUSCULAR HGB CONC 30.4 g/dl (32.0-36.5); MEAN CORPUSCULAR VOLUME 101.8 fl (80.0-96.0); PLATELET COUNT, AUTOMATED 119 10^3/uL (150-450); RED BLOOD COUNT 2.75 10^6/uL (4.00-5.40); RED CELL DISTRIBUTION WIDTH 15.7 % (11.5-14.5); WHITE BLOOD COUNT 3.5 10^3/uL (4.0-10.0)
[2018-04-06] MEDS: PANTOPRAZOLE 20 MG TAB PO (20:53)
[2018-04-06] MEDS: SENOKOT S TAB PO (20:53)
[2018-04-06] MEDS: diphenhydrAMINE 25 MG CAP PO (22:22)
[2018-04-07] MEDS: ACETAMINOPHEN 500 MG TAB PO ×3 (05:46→17:09)
[2018-04-07 07:02] LABS: BASO % 0.4 % (0.0-1.0); EOS % 0.4 % (0.0-3.0); IMMATURE GRANULOCYTE % 0.8 % (0-3.0); LYMPH # 0.7 10^3/uL (1.5-4.5); LYMPH % 29.7 % (24.0-44.0); MEAN CORPUSCULAR HEMOGLOBIN 30.6 pg (27.0-33.0); MEAN CORPUSCULAR HGB CONC 30.3 g/dl (32.0-36.5); MEAN CORPUSCULAR VOLUME 100.9 fl (80.0-96.0); MONO # 0.4 10^3/uL (0.0-0.8); MONO % 14.6 % (0.0-5.0); NEUTROPHILS # 1.3 10^3/uL (1.8-7.7); NEUTROPHILS % 54.1 % (36.0-66.0); PLATELET COUNT, AUTOMATED 108 10^3/uL (150-450); RED BLOOD COUNT 2.32 10^6/uL (4.00-5.40); RED CELL DISTRIBUTION WIDTH 15.3 % (11.5-14.5); WHITE BLOOD COUNT 2.5 10^3/uL (4.0-10.0)
[2018-04-07 07:25] LABS: ANION GAP 3 MEQ/L (8-16); BLOOD UREA NITROGEN 17 MG/DL (7-18); CARBON DIOXIDE LEVEL 36 MEQ/L (21-32); CHLORIDE LEVEL 104 MEQ/L (98-107); CREATININE FOR GFR 0.41 MG/DL (0.55-1.30); GLOMERULAR FILTRATION RATE > 60.0 (>32); GLUCOSE, FASTING 83 MG/DL (70-100); POTASSIUM SERUM 3.6 MEQ/L (3.5-5.1); SODIUM LEVEL 143 MEQ/L (136-145)
[2018-04-07] MEDS: MIRALAX *UNIT DOSE* 17GM PACKET PO (09:00)
[2018-04-07] MEDS: PANTOPRAZOLE 40MG TAB (PROTONIX) PO (09:52)
[2018-04-07] MEDS: MULTIVITAMINS/MINERALS THERAP 1 TAB PO (09:52)
[2018-04-07] MEDS: IBUPROFEN 400 MG TAB PO ×2 (09:53→22:10)
[2018-04-07 15:42] LABS: HEMATOCRIT 23.4 % (36.0-47.0); HEMOGLOBIN 7.1 g/dl (12.0-15.5)
[2018-04-07 18:45] LABS: IMMEDIATE SPIN CROSSMATCH 1 2
[2018-04-07] MEDS: PANTOPRAZOLE 20 MG TAB PO (20:03)
[2018-04-07] MEDS: SENOKOT S TAB PO (20:03)
[2018-04-07] MEDS: diphenhydrAMINE 25 MG CAP PO (22:10)
[2018-04-08] MEDS: ACETAMINOPHEN 500 MG TAB PO ×3 (05:56→17:28)
[2018-04-08 07:19] LABS: HEMATOCRIT 29.9 % (36.0-47.0); MEAN CORPUSCULAR HEMOGLOBIN 30.3 pg (27.0-33.0); MEAN CORPUSCULAR HGB CONC 31.1 g/dl (32.0-36.5); MEAN CORPUSCULAR VOLUME 97.4 fl (80.0-96.0); PLATELET COUNT, AUTOMATED 102 10^3/uL (150-450); RED BLOOD COUNT 3.07 10^6/uL (4.00-5.40); RED CELL DISTRIBUTION WIDTH 18.1 % (11.5-14.5); WHITE BLOOD COUNT 2.6 10^3/uL (4.0-10.0)
[2018-04-08 07:23] LABS: HEMOGLOBIN 9.3 g/dl (12.0-15.5)
[2018-04-08] MEDS: MIRALAX *UNIT DOSE* 17GM PACKET PO (09:00)
[2018-04-08] MEDS: MULTIVITAMINS/MINERALS THERAP 1 TAB PO (09:15)
[2018-04-08] MEDS: PANTOPRAZOLE 40MG TAB (PROTONIX) PO (09:15)
[2018-04-08] MEDS: IBUPROFEN 400 MG TAB PO ×2 (15:24→21:31)
[2018-04-08] MEDS: SENOKOT S TAB PO (21:00)
[2018-04-08] MEDS: diphenhydrAMINE 25 MG CAP PO (21:30)
[2018-04-09] MEDS: ACETAMINOPHEN 500 MG TAB PO ×3 (05:35→16:50)
[2018-04-09] MEDS: IBUPROFEN 400 MG TAB PO ×3 (07:13→21:12)
[2018-04-09] MEDS: MULTIVITAMINS/MINERALS THERAP 1 TAB PO (08:47)
[2018-04-09] MEDS: MIRALAX *UNIT DOSE* 17GM PACKET PO (08:47)
[2018-04-09] MEDS: PANTOPRAZOLE 40MG TAB (PROTONIX) PO (08:47)
[2018-04-09 09:44] LABS: HEMOGLOBIN 10.2 g/dl (12.0-15.5); MEAN CORPUSCULAR HEMOGLOBIN 30.7 pg (27.0-33.0); MEAN CORPUSCULAR HGB CONC 30.9 g/dl (32.0-36.5); MEAN CORPUSCULAR VOLUME 99.4 fl (80.0-96.0); PLATELET COUNT, AUTOMATED 119 10^3/uL (150-450); RED BLOOD COUNT 3.32 10^6/uL (4.00-5.40); RED CELL DISTRIBUTION WIDTH 16.9 % (11.5-14.5); WHITE BLOOD COUNT 2.6 10^3/uL (4.0-10.0)
[2018-04-09] MEDS: SENOKOT S TAB PO (21:00)
[2018-04-09] MEDS: diphenhydrAMINE 25 MG CAP PO (21:11)
[2018-04-10] MEDS: ACETAMINOPHEN 500 MG TAB PO ×3 (05:29→18:00)
[2018-04-10] MEDS: IBUPROFEN 400 MG TAB PO ×3 (06:33→20:37)
[2018-04-10 07:28] LABS: HEMATOCRIT 31.4 % (36.0-47.0); HEMOGLOBIN 9.6 g/dl (12.0-15.5); MEAN CORPUSCULAR HEMOGLOBIN 30.4 pg (27.0-33.0); MEAN CORPUSCULAR HGB CONC 30.6 g/dl (32.0-36.5); MEAN CORPUSCULAR VOLUME 99.4 fl (80.0-96.0); PLATELET COUNT, AUTOMATED 120 10^3/uL (150-450); RED BLOOD COUNT 3.16 10^6/uL (4.00-5.40); RED CELL DISTRIBUTION WIDTH 16.1 % (11.5-14.5); WHITE BLOOD COUNT 2.9 10^3/uL (4.0-10.0)
[2018-04-10] MEDS: MIRALAX *UNIT DOSE* 17GM PACKET PO ×2 (09:00→11:15)
[2018-04-10] MEDS: PANTOPRAZOLE 40MG TAB (PROTONIX) PO (11:15)
[2018-04-10] MEDS: MULTIVITAMINS/MINERALS THERAP 1 TAB PO (11:15)
[2018-04-10] MEDS: SENOKOT S TAB PO (20:36)
[2018-04-10] MEDS: diphenhydrAMINE 25 MG CAP PO (21:58)
[2018-04-11] MEDS: ACETAMINOPHEN 500 MG TAB PO ×3 (05:16→16:44)
[2018-04-11 07:17] LABS: EOS % 0.3 % (0.0-3.0); HEMATOCRIT 29.2 % (36.0-47.0); IMMATURE GRANULOCYTE % 0.7 % (0-3.0); LYMPH # 0.6 10^3/uL (1.5-4.5); LYMPH % 19.5 % (24.0-44.0); MEAN CORPUSCULAR HEMOGLOBIN 30.4 pg (27.0-33.0); MEAN CORPUSCULAR HGB CONC 30.8 g/dl (32.0-36.5); MEAN CORPUSCULAR VOLUME 98.6 fl (80.0-96.0); MONO # 0.4 10^3/uL (0.0-0.8); MONO % 13.2 % (0.0-5.0); NEUTROPHILS # 1.9 10^3/uL (1.8-7.7); NEUTROPHILS % 66.3 % (36.0-66.0); PLATELET COUNT, AUTOMATED 115 10^3/uL (150-450); RED BLOOD COUNT 2.96 10^6/uL (4.00-5.40); RED CELL DISTRIBUTION WIDTH 15.8 % (11.5-14.5); WHITE BLOOD COUNT 2.9 10^3/uL (4.0-10.0)
[2018-04-11 07:40] LABS: ANION GAP 4 MEQ/L (8-16); BLOOD UREA NITROGEN 16 MG/DL (7-18); CALCIUM LEVEL 8.7 MG/DL (8.8-10.2); CARBON DIOXIDE LEVEL 38 MEQ/L (21-32); CHLORIDE LEVEL 102 MEQ/L (98-107); CREATININE FOR GFR 0.39 MG/DL (0.55-1.30); GLOMERULAR FILTRATION RATE > 60.0 (>32); GLUCOSE, FASTING 87 MG/DL (70-100); MAGNESIUM LEVEL 2.1 MG/DL (1.8-2.4); SODIUM LEVEL 144 MEQ/L (136-145)
[2018-04-11] MEDS: MULTIVITAMINS/MINERALS THERAP 1 TAB PO (08:54)
[2018-04-11] MEDS: PANTOPRAZOLE 40MG TAB (PROTONIX) PO (08:54)
[2018-04-11] MEDS: MIRALAX *UNIT DOSE* 17GM PACKET PO (09:00)
[2018-04-11 15:04] LABS: UPEP INTERPRETATION NO M-SPIKE NOTED; URINE VOLUME RANDOM ML
[2018-04-11] MEDS: diphenhydrAMINE 25 MG CAP PO (21:40)
[2018-04-11] MEDS: SENOKOT S TAB PO (21:42)
[2018-04-11] MEDS: IBUPROFEN 400 MG TAB PO (21:42)
[2018-04-12] MEDS: ACETAMINOPHEN 500 MG TAB PO ×2 (05:25→11:39)
[2018-04-12] MEDS: MIRALAX *UNIT DOSE* 17GM PACKET PO (09:00)
[2018-04-12] MEDS: PANTOPRAZOLE 40MG TAB (PROTONIX) PO (09:15)
[2018-04-12] MEDS: MULTIVITAMINS/MINERALS THERAP 1 TAB PO (09:15)
[2018-04-12] MEDS: IBUPROFEN 400 MG TAB PO (09:15)
[2018-04-12 10:29] LABS: HEMATOCRIT 31.1 % (36.0-47.0); HEMOGLOBIN 9.3 g/dl (12.0-15.5)
[2018-04-14 07:16] LABS: FLOW CYTOMETRY FOR SEND OUT See Pathology Report
== END 2018-04-12 12:10 | disposition home health service (06) | DRG 560 ==
LOC: M PM&R 22:40
PROC: 30233N1 Transfusion of Nonautologous Red Blood Cells into Peripheral Vein, Percutaneous Approach (ICD-10-PCS; principal; 2018-04-03)
PROC: 30233R1 Transfusion of Nonautologous Platelets into Peripheral Vein, Percutaneous Approach (ICD-10-PCS; 2018-04-03)
DX: S72.142D Displaced intertrochanteric fracture of left femur, subsequent encounter for closed fracture with routine healing (principal); E46 Unspecified protein-calorie malnutrition; Z68.1 Body mass index [BMI] 19.9 or less, adult; D62 Acute posthemorrhagic anemia; D61.818 Other pancytopenia; W01.0XXD Fall on same level from slipping, tripping and stumbling without subsequent striking against object, subsequent encounter; Y92.019 Unspecified place in single-family (private) house as the place of occurrence of the external cause; Y93.01 Activity, walking, marching and hiking; K59.09 Other constipation; K57.90 Diverticulosis of intestine, part unspecified, without perforation or abscess without bleeding; J84.112 Idiopathic pulmonary fibrosis; I34.0 Nonrheumatic mitral (valve) insufficiency; D69.6 Thrombocytopenia, unspecified; I51.7 Cardiomegaly; G47.00 Insomnia, unspecified; R41.0 Disorientation, unspecified; K44.9 Diaphragmatic hernia without obstruction or gangrene; R53.81 Other malaise; L89.151 Pressure ulcer of sacral region, stage 1; G43.709 Chronic migraine without aura, not intractable, without status migrainosus; Z79.899 Other long term (current) drug therapy; Z98.49 Cataract extraction status, unspecified eye; Z90.710 Acquired absence of both cervix and uterus; Z87.891 Personal history of nicotine dependence; Z88.1 Allergy status to other antibiotic agents; Z88.5 Allergy status to narcotic agent; Z91.030 Bee allergy status

== ENCOUNTER → 2018-04-20 | Outpatient (REF) | payer MEDICARE ==
[2018-04-20 17:11] LABS: ALBUMIN 2.9 GM/DL (3.2-5.2); ALKALINE PHOSPHATASE 176 U/L (45-117); ALT/SGPT 16 U/L (12-78); ANION GAP 3 MEQ/L (8-16); AST/SGOT 30 U/L (7-37); BILIRUBIN,TOTAL 0.5 MG/DL (0.2-1.0); BLOOD UREA NITROGEN 24 MG/DL (7-18); CALCIUM LEVEL 8.8 MG/DL (8.8-10.2); CARBON DIOXIDE LEVEL 38 MEQ/L (21-32); CHLORIDE LEVEL 99 MEQ/L (98-107); CREATININE FOR GFR 0.58 MG/DL (0.55-1.30); GLOMERULAR FILTRATION RATE > 60.0 (>32); GLUCOSE, FASTING 120 MG/DL (70-100); POTASSIUM SERUM 4.7 MEQ/L (3.5-5.1); SODIUM LEVEL 140 MEQ/L (136-145); TOTAL PROTEIN 7.7 GM/DL (6.4-8.2)
[2018-04-20 17:24] LABS: HEMATOCRIT 27.9 % (36.0-47.0); HEMOGLOBIN 8.3 g/dl (12.0-15.5); IMMATURE GRANULOCYTE % 0.3 % (0-3.0); LYMPH # 0.5 10^3/uL (1.5-4.5); LYMPH % 16.3 % (24.0-44.0); MEAN CORPUSCULAR HEMOGLOBIN 31.2 pg (27.0-33.0); MEAN CORPUSCULAR HGB CONC 29.7 g/dl (32.0-36.5); MEAN CORPUSCULAR VOLUME 104.9 fl (80.0-96.0); MONO # 0.3 10^3/uL (0.0-0.8); NEUTROPHILS # 2.2 10^3/uL (1.8-7.7); NEUTROPHILS % 73.4 % (36.0-66.0); PLATELET COUNT, AUTOMATED 135 10^3/uL (150-450); RED BLOOD COUNT 2.66 10^6/uL (4.00-5.40); RED CELL DISTRIBUTION WIDTH 14.7 % (11.5-14.5); RETIC HEMOGLOBIN EQUIVALENT 29.6 pg (24-36); RETICULOCYTE # 86.5 10^9/L (17-77); RETICULOCYTE % 3.3 % (0.5-1.5)
== END ==
LOC: M LAB REF 16:19
DX: D61.818 Other pancytopenia (principal)
CPT/HCPCS: 80053

== ENCOUNTER 2018-04-27 13:11 | Outpatient (CLI) | payer MEDICARE ==
[2018-04-27] MEDS: FUROSEMIDE 40 MG/4 ML VIAL (J1940) IV (14:20)
== END 2018-04-27 18:00 | disposition home or self-care (01) ==
LOC: M INFU 13:11
DX: D64.9 Anemia, unspecified (principal); E43 Unspecified severe protein-calorie malnutrition; Z91.030 Bee allergy status; Z88.8 Allergy status to other drugs, medicaments and biological substances; Z79.899 Other long term (current) drug therapy; Z88.1 Allergy status to other antibiotic agents; Z88.5 Allergy status to narcotic agent
CPT/HCPCS: 36430

== ENCOUNTER → 2018-04-27 | Outpatient (CLI) | payer MEDICARE ==
[2018-04-27 15:26] LABS: IMMEDIATE SPIN CROSSMATCH 1 2
== END ==
LOC: M LAB 10:57
PROVIDERS: Emergency Medicine Pediatric Emergency Medicine
DX: E43 Unspecified severe protein-calorie malnutrition (principal); D63.8 Anemia in other chronic diseases classified elsewhere; Z91.030 Bee allergy status; Z88.8 Allergy status to other drugs, medicaments and biological substances
CPT/HCPCS: 36415

== ENCOUNTER → 2018-05-07 | Outpatient (REF) | payer MEDICARE ==
[2018-05-07 15:48] LABS: HEMATOCRIT 33.4 % (36.0-47.0); HEMOGLOBIN 10.2 g/dl (12.0-15.5); IMMATURE GRANULOCYTE % 0.7 % (0-3.0); LYMPH # 0.5 10^3/uL (1.5-4.5); LYMPH % 10.9 % (24.0-44.0); MEAN CORPUSCULAR HEMOGLOBIN 30.6 pg (27.0-33.0); MEAN CORPUSCULAR HGB CONC 30.5 g/dl (32.0-36.5); MEAN CORPUSCULAR VOLUME 100.3 fl (80.0-96.0); MONO # 0.5 10^3/uL (0.0-0.8); MONO % 11.1 % (0.0-5.0); NEUTROPHILS # 3.6 10^3/uL (1.8-7.7); NEUTROPHILS % 77.3 % (36.0-66.0); PLATELET COUNT, AUTOMATED 103 10^3/uL (150-450); RED BLOOD COUNT 3.33 10^6/uL (4.00-5.40); RED CELL DISTRIBUTION WIDTH 14.7 % (11.5-14.5); WHITE BLOOD COUNT 4.6 10^3/uL (4.0-10.0)
[2018-05-07 16:28] LABS: ALBUMIN 3.1 GM/DL (3.2-5.2); ALBUMIN/GLOBULIN RATIO 0.61 (1.00-1.93); ALKALINE PHOSPHATASE 124 U/L (45-117); ALT/SGPT 12 U/L (12-78); ANION GAP 9 MEQ/L (8-16); AST/SGOT 23 U/L (7-37); BILIRUBIN,TOTAL 0.9 MG/DL (0.2-1.0); BLOOD UREA NITROGEN 27 MG/DL (7-18); CALCIUM LEVEL 9.5 MG/DL (8.8-10.2); CARBON DIOXIDE LEVEL 33 MEQ/L (21-32); CHLORIDE LEVEL 102 MEQ/L (98-107); CREATININE FOR GFR 0.56 MG/DL (0.55-1.30); FREE T4 1.02 NG/DL (0.76-1.46); GLOMERULAR FILTRATION RATE > 60.0 (>32); GLUCOSE, FASTING 95 MG/DL (70-100); POTASSIUM SERUM 4.2 MEQ/L (3.5-5.1); SODIUM LEVEL 144 MEQ/L (136-145); TOTAL PROTEIN 8.2 GM/DL (6.4-8.2)
[2018-05-08 18:25] LABS: GAMMA GLUTAMYLTRANSPEPTIDASE 15 U/L (5-55)
== END ==
LOC: M SFHCPLAZ 13:08
DX: E03.9 Hypothyroidism, unspecified (principal); K59.00 Constipation, unspecified; D63.8 Anemia in other chronic diseases classified elsewhere; K63.5 Polyp of colon
CPT/HCPCS: 84443